=== PATIENT | female | born 1975 | race American Indian/Alaskan Native ===

== ENCOUNTER 2017-06-12 11:32 | Emergency (ER) | payer SELFPAY ==
[2017-06-12 11:53] VITALS: BP 115/65
--- NOTE | 2017-06-12 11:53 | Emergency Department Report ---
Chief Complaint: Pain General Stated Complaint: BODY PAINS,NAUSEA Time Seen by Provider: 06/12/17 11:48 - HPI History of Present Illness: PT c/o body pain x 2-3 weeks. PT thinks the pain is related to a new position at her job. - ROS Review of Systems: + knee pain, worse with standing + myalgia - changes to urine - Exam Physical Exam: pt looks well, nontoxic. no focal weakness noted MSE screening note: Focused history and physical exam performed. Due to findings the following was ordered: labs ED Disposition for MSE Condition: Stable
[2017-06-12 12:21] LABS: Basophils % (Auto) 1.1 % (0.0-1.8); Eosinophils % (Auto) 5.4 % (0.0-4.3); Hematocrit 34.1 % (30.3-42.9); Hemoglobin 11.6 gm/dl (10.1-14.3); Mean Corpuscular HGB Conc 34 % (30-34); Mean Corpuscular Hemoglobin 31 pg (28-32); Mean Corpuscular Volume 92 fl (79-97); Platelet Count 403 K/mm3 (140-440); Red Cell Distribution Width 12.7 % (13.2-15.2); White Blood Count 5.3 K/mm3 (4.5-11.0)
[2017-06-12 12:36] LABS: Alanine Aminotransferase 11 units/L (7-56); Albumin 3.4 g/dL (3.9-5); Albumin/Globulin Ratio 0.9 %; Alkaline Phosphatase 67 units/L (35-129); Anion Gap 18 mmol/L; Blood Urea Nitrogen 6 mg/dL (7-17); Calcium 8.5 mg/dL (8.4-10.2); Carbon Dioxide 23 mmol/L (22-30); Chloride 102.7 mmol/L (98-107); Creatine Kinase 54 units/L (30-135); Glucose 81 mg/dL (65-100); Potassium 3.6 mmol/L (3.6-5.0); Sodium 140 mmol/L (137-145)
[2017-06-12] MEDS ORDERED: NORCO 5/325 PO ONE (15:09)
[2017-06-12] MEDS ORDERED: FLEXERIL PO ONE (15:09)
[2017-06-12] MEDS ORDERED: TORADOL IM ONE (15:09)
[2017-06-12 15:40] LABS: Bacteria,Urine 1+ /HPF (Negative); Bilirubin,Urine NEG (Negative); Blood,Urine MOD (Negative); Ketones,Urine NEG (Negative); Leukocyte Esterase,Urine NEG (Negative); Mucus,Urine FEW /HPF; Nitrite,Urine NEG (Negative); Protein,Urine <15 mg/dL mg/dL (Negative); Urobilinogen,Urine < 2.0 mg/dL (<2.0); WBC,Urine < 1.0 /HPF (0.0-6.0)
--- NOTE | 2017-06-12 18:33 | Emergency Department Report ---
ED General Adult HPI - General Chief complaint: Pain General Stated complaint: BODY PAINS,NAUSEA Time Seen by Provider: 06/12/17 11:48 Source: patient Mode of arrival: Ambulatory Limitations: No Limitations - History of Present Illness Initial comments: 42 year old female presents to ED with myalgia x2 weeks. patient states she starting new job doing a lot of lifting and she has had bodyaches since starting. patient is stable, neurologically intact, afebrile and in no acute distress. patient denies N/V, syncope, dysuria, hematuria. -: Gradual, week(s) Severity scale (0 -10): 0 Quality: aching Consistency: constant Improves with: rest Worsens with: movement Associated Symptoms: denies other symptoms. denies: confusion, chest pain, cough, headaches, nausea/vomiting, rash, shortness of breath, syncope Treatments Prior to Arrival: none - Related Data Previous Rx's Medication Instructions Recorded Last Taken Type Ketorolac [Toradol] 10 mg PO Q6H PRN #20 tablet 06/12/17 Unknown Rx methOCARBAMOL [Robaxin TAB] 500 mg PO TID #30 tab 06/12/17 Unknown Rx Allergies Allergy/AdvReac Type Severity Reaction Status Date / Time No Known Allergies Allergy Verified 06/12/17 11:49 ED Review of Systems ROS: Stated complaint: BODY PAINS,NAUSEA Other details as noted in HPI Constitutional: denies: chills, fever Eyes: denies: eye pain, eye discharge, vision change ENT: denies: ear pain, throat pain Respiratory: denies: cough, shortness of breath, wheezing Cardiovascular: denies: chest pain, palpitations Endocrine: no symptoms reported Gastrointestinal: denies: abdominal pain, nausea, diarrhea Genitourinary: denies: urgency, dysuria, discharge Musculoskeletal: myalgia. denies: back pain, joint swelling, arthralgia Skin: denies: rash, lesions Neurological: denies: headache, numbness, paresthesias, confusion, abnormal gait , vertigo Psychiatric: denies: anxiety, depression Hematological/Lymphatic: denies: easy bleeding, easy bruising ED Past Medical Hx - Past Medical History Previous Medical History?: No - Surgical History Past Surgical History?: No - Social History Smoking Status: Never Smoker Substance Use Type: Alcohol - Medications Home Medications: Home Medications Medication Instructions Recorded Confirmed Last Taken Type Ketorolac [Toradol] 10 mg PO Q6H PRN #20 tablet 06/12/17 Unknown Rx methOCARBAMOL [Robaxin TAB] 500 mg PO TID #30 tab 06/12/17 Unknown Rx ED Physical Exam - General Limitations: No Limitations General appearance: alert, in no apparent distress - Head Head exam: Present: atraumatic, normocephalic - Eye Eye exam: Present: normal appearance - ENT ENT exam: Present: mucous membranes moist - Neck Neck exam: Present: normal inspection - Respiratory Respiratory exam: Present: normal lung sounds bilaterally. Absent: respiratory distress - Cardiovascular Cardiovascular Exam: Present: regular rate, normal rhythm. Absent: systolic murmur, diastolic murmur, rubs, gallop - GI/Abdominal GI/Abdominal exam: Present: soft, normal bowel sounds. Absent: distended, tenderness - Extremities Exam Extremities exam: Present: normal inspection, full ROM. Absent: tenderness - Back Exam Back exam: Present: normal inspection, full ROM. Absent: tenderness - Neurological Exam Neurological exam: Present: alert, oriented X3, normal gait, other (strength normal in all 4 extremeties) - Psychiatric Psychiatric exam: Present: normal affect, normal mood - Skin Skin exam: Present: warm, dry, intact, normal color. Absent: rash ED Course Vital Signs 06/12/17 11:49 Temperature 98.2 F Pulse Rate 81 Respiratory 16 Rate Blood Pressure 115/65 O2 Sat by Pulse 100 Oximetry ED Medical Decision Making - Lab Data Result diagrams: 06/12/17 11:54 06/12/17 11:54 Labs 06/12/17 06/12/17 06/12/17 11:54 11:54 Unknown WBC 5.3 RBC 3.70 Hgb 11.6 Hct 34.1 MCV 92 MCH 31 MCHC 34 RDW 12.7 L Plt Count 403 Lymph % (Auto) 40.6 H [place] % (Auto) 6.5 Eos % (Auto) 5.4 H Baso % (Auto) 1.1 Lymph # 2.1 [place] # 0.3 Eos # 0.3 Baso # 0.1 Seg Neutrophils % 46.4 Seg Neutrophils # 2.4 Sodium 140 Potassium 3.6 Chloride 102.7 Carbon Dioxide 23 Anion Gap 18 BUN 6 L Creatinine 0.5 L Estimated GFR > 60 BUN/Creatinine Ratio 12.00 Glucose 81 Calcium 8.5 Total Bilirubin 0.60 AST 14 ALT 11 Alkaline Phosphatase 67 Total Creatine Kinase 54 Total Protein 7.0 Albumin 3.4 L Albumin/Globulin Ratio 0.9 Urine Color Yellow Urine Turbidity Clear Urine pH 6.0 Ur Specific [place] 1.009 Urine Protein <15 mg/dl Urine Glucose (UA) Neg Urine Ketones Neg Urine Blood Mod Urine Nitrite Neg Urine Bilirubin Neg Urine Urobilinogen < 2.0 Ur Leukocyte Esterase Neg Urine WBC (Auto) < 1.0 Urine RBC (Auto) 5.0 U Epithel Cells (Auto) 1.0 Urine Bacteria (Auto) 1+ Urine Mucus Few Urine HCG, Qual Negative - Radiology Data Radiology results: report reviewed - Medical Decision Making 42 year old female presents to ED with myalgias. patient is stable, neurologically intact and in no acute distress. patient has normal WBC. patient has no UTI present in urine. patient has normal electrolyte levels. Critical care attestation.: If time is entered above; I have spent that time in minutes in the direct care of this critically ill patient, excluding procedure time. ED Disposition Clinical Impression: Myalgia Disposition: DC-01 TO HOME OR SELFCARE Is pt being admited?: No Does the pt Need Aspirin: No Condition: Stable Instructions: Musculoskeletal Pain (ED) Prescriptions: Ketorolac [Toradol] 10 mg PO Q6H PRN #20 tablet PRN Reason: Pain methOCARBAMOL [Robaxin TAB] 500 mg PO TID #30 tab Referrals: PRIMARY CARE, [Primary Care Provider] - 3-5 Days Forms: Work/School Release Form(ED)
== END 2017-06-12 17:30 | disposition home or self-care (01) ==
LOC: ED 11:32
DX: M79.1 Myalgia (principal)
CPT/HCPCS: 36415; 80053; 81001; 81025; 82550; 85025; 96372; 99283; J1885

== ENCOUNTER 2018-03-20 10:28 | Emergency (ER) | payer OTHER ==
[2018-03-20] MEDS ORDERED: MOTRIN PO ONE (12:37)
[2018-03-20] MEDS ORDERED: FLEXERIL PO ONE (12:37)
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
[2018-03-20 13:50] VITALS: BP 118/72
== END 2018-03-20 13:50 | disposition home or self-care (01) ==
LOC: ED 10:28
DX: S39.012A Strain of muscle, fascia and tendon of lower back, initial encounter (principal); V89.2XXA Person injured in unspecified motor-vehicle accident, traffic, initial encounter; Y93.89 Activity, other specified; Y92.89 Other specified places as the place of occurrence of the external cause; Y99.8 Other external cause status
CPT/HCPCS: 99283

== ENCOUNTER 2018-09-12 09:52 | Emergency (ER) | payer SELFPAY ==
[2018-09-12 10:25] LABS: Bilirubin,Urine NEG (Negative); Blood,Urine NEG (Negative); Color,Urine Yellow (Yellow); Mucus,Urine FEW /HPF; Protein,Urine <15 mg/dL mg/dL (Negative)
[2018-09-12 10:31] LABS: HCG Qualitative,Urine Negative (Negative)
--- NOTE | 2018-09-12 11:25 | Emergency Department Report ---
HPI - General Chief Complaint: Back Pain/Injury Time Seen by Provider: 09/12/18 10:54 - HPI HPI: Room 29 The patient is a 43-year-old female presenting with chief complaint dizziness and "not feeling good." The patient states for the past 2-3 months she had a decreased appetite which is approximately 20 pound weight loss. The patient states 2 days ago she had an episode of nausea and vomiting. Patient states when she awakened this morning she felt dizzy and has had back pain. The patient states she's had intermittent back pain for over one year. Patient denies headache, shortness of breath or cough. Location: [See above] Duration: [See above] Quality: [See above] Severity: [See above] Modifying factors: [see above] Context: [see above] Mode of transportation: Unknown ED Past Medical Hx - Past Medical History Previous Medical History?: No - Surgical History Past Surgical History?: No - Family History Family history: no significant - Social History Smoking Status: Never Smoker Substance Use Type: None (denies illicit drug use), Alcohol (history of heavy use but decreased consumption summer 2017) - Medications Home Medications: Home Medications Medication Instructions Recorded Confirmed Last Taken Type Ketorolac [Toradol] 10 mg PO Q6H PRN #20 tablet 06/12/17 Unknown Rx methOCARBAMOL [Robaxin TAB] 500 mg PO TID #30 tab 06/12/17 Unknown Rx Cyclobenzaprine [Flexeril 10 MG 10 mg PO QHS #20 tablet 03/20/18 Unknown Rx TAB] Ibuprofen [Motrin 800 MG tab] 800 mg PO TID #20 tablet 03/20/18 Unknown Rx Meclizine [Antivert] 25 mg PO TID PRN #20 tablet 09/12/18 Unknown Rx ED Review of Systems ROS: Stated complaint: BACK PAIN, VOMITTING Other details as noted in HPI Constitutional: no symptoms reported Eyes: denies: eye pain ENT: denies: throat pain Respiratory: no symptoms reported Cardiovascular: denies: chest pain Endocrine: unexplained weight loss Gastrointestinal: nausea, vomiting. denies: abdominal pain Genitourinary: denies: dysuria Musculoskeletal: back pain Neurological: other (dizziness). denies: headache Physical Exam - Physical Exam Vital Signs: Vital Signs 09/12/18 09:57 Temperature 98.5 F Pulse Rate 95 H Respiratory 18 Rate Blood Pressure 97/56 O2 Sat by Pulse 99 Oximetry Vital Signs 09/12/18 09/12/18 09/12/18 09:57 11:50 12:00 Temperature 98.5 F Pulse Rate 95 H 94 H Respiratory 18 14 Rate Blood Pressure 97/56 96/57 106/61 O2 Sat by Pulse 99 99 Oximetry 09/12/18 09/12/18 12:16 12:30 Temperature Pulse Rate 67 64 Respiratory 18 18 Rate Blood Pressure 106/61 96/57 O2 Sat by Pulse 100 100 Oximetry Physical Exam: GENERAL: The patient is well-developed well-nourished female sitting on chair not appearing to be in acute distress HEENT: Normocephalic. Atraumatic. Extraocular motions are intact. Patient has moist mucous membranes. NECK: Supple. Trachea midline CHEST/LUNGS: Clear to auscultation. There is no respiratory distress noted. HEART/CARDIOVASCULAR: Regular. There is no tachycardia. There is no gallop rub or murmur. ABDOMEN: Abdomen is soft, nontender. Patient has normal bowel sounds. There is no abdominal distention. SKIN: There is no rash. There is no edema. There is no diaphoresis. NEURO: The patient is awake, alert, and oriented. The patient is cooperative. The patient has normal speech MUSCULOSKELETAL: There is no evidence of acute injury. ED Course Vital Signs 09/12/18 09:57 Temperature 98.5 F Pulse Rate 95 H Respiratory 18 Rate Blood Pressure 97/56 O2 Sat by Pulse 99 Oximetry ED Medical Decision Making - Lab Data Result diagrams: 09/12/18 11:17 09/12/18 11:17 - Radiology Data Radiology results: report reviewed (CT head, CT chest), image reviewed (CT head , CT chest) [facility] [address] [place] [address] Cat Scan Report Signed Patient: STEPHANIE CARROLL MR#: [id number] : 1975 Acct:[id number] Age/Sex: 43 / F ADM Date: 09/12/18 Loc: ED Attending Dr: Ordering Physician: GLEN BURGOS MD Date of Service: 09/12/18 Procedure(s): CT angio chest Accession Number(s): [id number] cc: GLEN BURGOS MD CTA CHEST: HISTORY: Dizziness, elevated d-dimer. COMPARISON: none. TECHNIQUE: Helical CT in 1.25mm intervals following IV contrast. Pulmonary embolus protocol. Sagittal and coronal reformatted images. Rotational MIP images. FINDINGS: Contrast bolus is satisfactory. No pulmonary embolus is identified. Thyroid gland: Normal. Tracheobronchial tree: Normal. Esophagus: Normal. Heart: Normal. Pericardium: Normal. Mediastinum: Normal. Lung [place]: Normal. Pleural Spaces: Normal. Musculoskeletal: Normal. IMPRESSION: No evidence for pulmonary embolus. Unremarkable CT chest with contrast. Transcribed By: TTR Dictated By: ALLIE CNONOR JR, MD Electronically Authenticated By: ALLIE CONNOR JR, MD Signed Date/Time: 09/12/181405 DD/ 05 TD/TT: 09/12/181405 [facility] [address] [place] [address] Cat Scan Report Signed Patient: STEPHANIE CARROLL MR#: [id number] : 1975 Acct:[id number] Age/Sex: 43 / F ADM Date: 09/12/18 Loc: ED Attending Dr: Ordering Physician: GLEN BURGOS MD Date of Service: 09/12/18 Procedure(s): CT head/brain wo con Accession Number(s): [id number] cc: GLEN BURGOS MD CT HEAD WITHOUT CONTRAST: HISTORY: Dizziness. TECHNIQUE: Sequential 2.5mm CT images. COMPARISON: none. FINDINGS: Cerebral Parenchyma: Within normal limits. Cerebellum: Within normal limits. Brainstem: Within normal limits. Ventricles: Normal. Sella: Normal. Extra-axial spaces: Normal. Basal Cisterns: Normal. Intracranial Hemorrhage: None. Midline Shift: None. Calvarium: Normal. Sinuses: Normal. Mastoid Air Cells: Normal. Visualized Orbits: Normal. IMPRESSION: Cranial CT scan within normal limits. Transcribed By: TTR Dictated By: ALLIE CONNOR JR, MD Electronically Authenticated By: ALLIE CONNOR JR, MD Signed Date/Time: 09/12/18 1139 DD/ 38 TD/TT: 09/12/181138 - Differential Diagnosis dehydration, CA, PE, vertigo, hypothyroidism Critical care attestation.: If time is entered above; I have spent that time in minutes in the direct care of this critically ill patient, excluding procedure time. ED Disposition Clinical Impression: Dizziness Disposition: DC-01 TO HOME OR SELFCARE Is pt being admited?: No Does the pt Need Aspirin: No Condition: Stable Instructions: Dizziness (ED) Additional Instructions: Return to the emergency department immediately should you develop worsening symptoms, fever, inability to tolerate food or liquid or any other concerns. Prescriptions: Meclizine [Antivert] 25 mg PO TID PRN #20 tablet PRN Reason: Vertigo Referrals: PRIMARY CARE, [Primary Care Provider] - 3-5 Days [facility] [Outside] - 3-5 Days Time of Disposition: 14:20
[2018-09-12 11:33] LABS: Basophils # (Auto) 0.1 K/mm3 (0.0-0.1); Basophils % (Auto) 1.3 % (0.0-1.8); Eosinophils # (Auto) 0.3 K/mm3 (0.0-0.4); Eosinophils % (Auto) 7.6 % (0.0-4.3); Hematocrit 38.5 % (30.3-42.9); Hemoglobin 13.2 gm/dl (10.1-14.3); Lymphocytes # (Auto) 1.3 K/mm3 (1.2-5.4); Lymphocytes % (Auto) 30.3 % (13.4-35.0); Mean Corpuscular HGB Conc 34 % (30-34); Mean Corpuscular Hemoglobin 32 pg (28-32); Mean Corpuscular Volume 94 fl (79-97); Monocytes # (Auto) 0.2 K/mm3 (0.0-0.8); Monocytes % (Auto) 4.4 % (0.0-7.3); Platelet Count 304 K/mm3 (140-440); Red Blood Count 4.08 M/mm3 (3.65-5.03); Red Cell Distribution Width 12.9 % (13.2-15.2)
--- NOTE | 2018-09-12 11:41 | Cat Scan Report ---
CT HEAD WITHOUT CONTRAST: HISTORY: Dizziness. TECHNIQUE: Sequential 2.5mm CT images. COMPARISON: none. FINDINGS: Cerebral Parenchyma: Within normal limits. Cerebellum: Within normal limits. Brainstem: Within normal limits. Ventricles: Normal. Sella: Normal. Extra-axial spaces: Normal. Basal Cisterns: Normal. Intracranial Hemorrhage: None. Midline Shift: None. Calvarium: Normal. Sinuses: Normal. Mastoid Air Cells: Normal. Visualized Orbits: Normal. IMPRESSION: Cranial CT scan within normal limits.
[2018-09-12 11:59] LABS: Alanine Aminotransferase 11 units/L (7-56); Albumin 4.1 g/dL (3.9-5); BUN/Creatinine Ratio 16; Blood Urea Nitrogen 8 mg/dL (7-17); Calcium 9.1 mg/dL (8.4-10.2); Hemolysis Index 16
[2018-09-12 12:09] LABS: Free T4 (Free Thyroxine) 0.96 ng/dL (0.76-1.46)
[2018-09-12 12:11] LABS: Creatine Kinase MB < 1.0 ng/mL (0.0-4.0)
[2018-09-12] MEDS ORDERED: NACL 0.9% 1000 ML 1,000 ML IV ONE (12:19)
[2018-09-12 12:45] VITALS: BP 96/57
[2018-09-12] MEDS ORDERED: NACL 0.9% 50 ML ONE (12:51)
--- NOTE | 2018-09-12 14:08 | Cat Scan Report ---
CTA CHEST: HISTORY: Dizziness, elevated d-dimer. COMPARISON: none. TECHNIQUE: Helical CT in 1.25mm intervals following IV contrast. Pulmonary embolus protocol. Sagittal and coronal reformatted images. Rotational MIP images. FINDINGS: Contrast bolus is satisfactory. No pulmonary embolus is identified. Thyroid gland: Normal. Tracheobronchial tree: Normal. Esophagus: Normal. Heart: Normal. Pericardium: Normal. Mediastinum: Normal. Lung Rothman: Normal. Pleural Spaces: Normal. Musculoskeletal: Normal. IMPRESSION: No evidence for pulmonary embolus. Unremarkable CT chest with contrast.
== END 2018-09-12 14:36 | disposition home or self-care (01) ==
LOC: ED 09:52
DX: R42 Dizziness and giddiness (principal); R11.2 Nausea with vomiting, unspecified; M54.9 Dorsalgia, unspecified
CPT/HCPCS: 36415; 70450; 71275; 80053; 81001; 81025; 82550; 82553; 84439; 84443; 84484; 84703; 85025; 85379; 93005; 93010; 96360; 99284; J7030; Q9967